=== PATIENT | male | born 1960 | race Two or more races ===

== ENCOUNTER 2023-04-01 22:26 | Emergency (ER) | payer MEDICAID, OTHER ==
[~2023-04-01] VITALS: Ht 182.9 cm; Wt 68.2 kg
[2023-04-01 23:31] VITALS: PULSE 92; RESP 22; O2SAT 98
[2023-04-02 01:00] VITALS: BP 116/69; PULSE 90; RESP 18; TEMP 97.9; O2SAT 98
== END 2023-04-02 01:00 | disposition home or self-care (01) ==
LOC: EDBD 22:26 → ER 22:26
DX: R56.9 Unspecified convulsions (principal); F17.210 Nicotine dependence, cigarettes, uncomplicated; Z86.2 Personal history of diseases of the blood and blood-forming organs and certain disorders involving the immune mechanism
CPT/HCPCS: 36415; 70450; 80320; 93005